=== PATIENT | female | born 1975 | race Caucasian/White ===

== ENCOUNTER 2020-04-10 20:30 | Emergency (ER) | payer BC, OTHER ==
[2020-04-10] MEDS ORDERED: Lidocaine 2% 20 ml MDV ONE (20:50)
== END 2020-04-10 21:39 | disposition home or self-care (01) ==
LOC: MADERS 20:30
DX: S61.210A Laceration without foreign body of right index finger without damage to nail, initial encounter (principal); E03.9 Hypothyroidism, unspecified; Z79.899 Other long term (current) drug therapy; W26.0XXA Contact with knife, initial encounter
CPT/HCPCS: 12002